=== PATIENT | male | born 1970 | race Two or more races ===

== ENCOUNTER 2018-12-22 20:24 | Emergency (ER) | payer SELFPAY ==
[~2018-12-22] VITALS: Ht 185.4 cm; Wt 102.1 kg
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
[2018-12-22] MEDS ORDERED: HYDROCODONE/APAP 10/325MG 1 EA TABLET ONE (20:51)
[2018-12-22] MEDS ORDERED: HYDROCODONE/APAP 10/325MG 1 EA TABLET PO ONE (21:00)
--- NOTE | 2018-12-22 22:12 | NUR ---
CALLED ANA MARÍA TO READ CT IMAGE
[2018-12-22 23:06] VITALS: BP 120/71
== END 2018-12-22 23:07 | disposition home or self-care (01) ==
LOC: ER 20:24
DX: S06.0X0A Concussion without loss of consciousness, initial encounter (principal); S09.8XXA Other specified injuries of head, initial encounter; R51 Headache; V49.49XA Driver injured in collision with other motor vehicles in traffic accident, initial encounter; Y93.89 Activity, other specified; Y92.410 Unspecified street and highway as the place of occurrence of the external cause; Y99.8 Other external cause status
CPT/HCPCS: 70450-TC